=== PATIENT | male | born 1990 | race Caucasian/White ===

== ENCOUNTER 2021-09-03 16:43 | Emergency (ER) | payer MEDICAID, OTHER ==
[~2021-09-03 16:43] MED LIST: Iopamidol 370 76% 100 ML VIAL ONE
[2021-09-03 17:08] LABS: #Lymphocytes 0.9 thou/uL (1.20-3.40); #Monocytes 0.9 thou/uL (0.11-0.59); #Neutrophils 16.8 thou/uL (1.40-6.50); %Basophils 0.2 % (0.0-1.0); %Lymphocytes 4.8 % (21.0-51.0); %Monocytes 4.9 % (0.0-10.0); Hemoglobin 13.6 g/dL (14.0-18.0); Mean Corpuscular HGB CONC 33.1 g/dL (32.0-36.0); Mean Corpuscular Hemoglobin 28.9 pg (27.0-31.0); Mean Corpuscular Volume 87.5 fL (78.0-98.0); Platelet Count 453 thou/uL (130-400); RBC Distribution Width 12.4 % (11.5-14.5); Red Blood Cell (RBC) Count 4.69 mill/uL (4.70-6.10); White Blood Cell (WBC) Count 18.7 thou/uL (4.8-10.8)
[2021-09-03] MEDS ORDERED: Lorazepam 2 MG/ML VIAL ONE (17:21)
[2021-09-03 17:23] LABS: ALT (SGPT) 10 U/L (8-55); AST (SGOT) 17 U/L (5-34); Albumin 4.2 g/dL (3.5-5.0); Alkaline Phosphatase 61 U/L (40-110); Anion Gap 22 mmol/L (10-20); BUN (Urea Nitrogen) 8 mg/dL (8.9-20.6); Bilirubin, Total 0.2 mg/dL (0.2-1.2); Calc. Creatinine Clearance 0 mL/min (70-130); Calcium 9.5 mg/dL (7.8-10.44); Carbon Dioxide 17 mmol/L (22-29); Chloride 109 mmol/L (98-107); Globulin 3.7 g/dL (2.4-3.5); Glucose 103 mg/dL (70-105); Potassium 3.9 mmol/L (3.5-5.1); Protein, Total 7.9 g/dL (6.0-8.3); Sodium 144 mmol/L (136-145)
[2021-09-03] MEDS ORDERED: Cefepime 2 GM VIAL ONE (18:15)
[2021-09-03] MEDS ORDERED: Sodium Chloride 0.9% 100 ML ONE (18:15)
[2021-09-03] MEDS ORDERED: Ondansetron PF 4 MG/2 ML Vial ONE (18:16)
[2021-09-03] MEDS ORDERED: Morphine 2 MG/ML VIAL ONE (18:16)
[2021-09-03] MEDS ORDERED: metroNIDAZOLE 500 MG/100 ML BAG ONE (18:33)
[2021-09-03 19:27] LABS: SARS-CoV-2 NAA Rapid Test Not Detected (NotDetected)
== END 2021-09-03 19:05 | disposition short-term general hospital (02) ==
LOC: BURERS 16:43
DX: K35.80 Unspecified acute appendicitis (principal)
CPT/HCPCS: 74177; 80053; 85025; 96365; 96375; J0692; J2060; J2270; J2405; J3490; Q9967; U0002